=== PATIENT | female | born 1995 | race Caucasian/White ===

== ENCOUNTER 2019-06-24 09:53 | Emergency (ER) | payer MEDICAID ==
[~2019-06-24] VITALS: Ht 160 cm; Wt 39.0 kg
[~2019-06-24 09:53] MED LIST: CEPH250S PO; NAPR-996 PO; ONDA4TAB12 PO; PHEN20SP2 PO
[2019-06-24 09:55] VITALS: BP 118/91
[2019-06-24] MEDS ORDERED: CLOT15CR73 TP (10:50)
== END 2019-06-24 11:00 | disposition home or self-care (01) ==
LOC: ER 09:53
DX: N64.52 Nipple discharge (principal); B37.89 Other sites of candidiasis; J45.909 Unspecified asthma, uncomplicated; F17.200 Nicotine dependence, unspecified, uncomplicated; Z98.890 Other specified postprocedural states; Z88.6 Allergy status to analgesic agent; Z79.2 Long term (current) use of antibiotics; Z79.899 Other long term (current) drug therapy
CPT/HCPCS: 99283

== ENCOUNTER 2021-04-06 09:25 | Emergency (ER) | payer MEDICAID ==
[~2021-04-06] VITALS: Ht 160 cm; Wt 42.7 kg
[2021-04-06 09:35] VITALS: BP 144/75
== END 2021-04-06 12:04 | disposition home or self-care (01) ==
LOC: ER 09:26
DX: M54.59 Other low back pain (principal); J45.909 Unspecified asthma, uncomplicated; Z88.6 Allergy status to analgesic agent; Z79.899 Other long term (current) drug therapy
CPT/HCPCS: 99281

== ENCOUNTER 2021-07-01 14:23 | Emergency (ER) | payer MEDICAID ==
[~2021-07-01] VITALS: Ht 160 cm; Wt 42.3 kg
[2021-07-01 15:09] VITALS: BP 131/77
== END 2021-07-01 15:29 | disposition home or self-care (01) ==
LOC: ER 14:24
DX: F41.9 Anxiety disorder, unspecified (principal); J45.909 Unspecified asthma, uncomplicated; Z88.6 Allergy status to analgesic agent; Z79.899 Other long term (current) drug therapy
CPT/HCPCS: 99281; 99282

== ENCOUNTER 2021-07-10 15:32 | Emergency (ER) | payer MEDICAID ==
[~2021-07-10] VITALS: Ht 160 cm; Wt 42.0 kg
[2021-07-10] MEDS ORDERED: BACL5TAB PO (17:26)
[2021-07-10 17:44] VITALS: BP 126/74
== END 2021-07-10 17:46 | disposition home or self-care (01) ==
LOC: ER 15:33
DX: M54.59 Other low back pain (principal); J45.909 Unspecified asthma, uncomplicated; Z88.6 Allergy status to analgesic agent; Z79.899 Other long term (current) drug therapy
CPT/HCPCS: 99282

== ENCOUNTER 2022-10-02 15:59 | Emergency (ER) | payer MEDICAID, OTHER ==
[~2022-10-02] VITALS: Ht 157.5 cm; Wt 41.6 kg
[~2022-10-02 15:59] MED LIST changes: +BACL5TAB PO
[2022-10-02 16:04] VITALS: BP 110/74; PULSE 85; TEMP 97.8; O2SAT 99
[2022-10-02] MEDS ORDERED: ketorolac tromethamine 15mg/ml inj. IM ONE (17:20)
[2022-10-02] MEDS ORDERED: diazepam inj 5 MG/ML inj. IM ONE (17:20)
[2022-10-02] MEDS ORDERED: CYCL-1 PO (17:28)
[2022-10-02] MEDS ORDERED: PRED20TA PO (17:28)
[2022-10-02] MEDS ORDERED: ketorolac trometh. 30mg/ml inj. IM ONE (17:30)
[2022-10-02 17:39] VITALS: RESP 17
== END 2022-10-02 17:48 | disposition home or self-care (01) ==
LOC: ER 16:02
DX: S39.012A Strain of muscle, fascia and tendon of lower back, initial encounter (principal); S29.012A Strain of muscle and tendon of back wall of thorax, initial encounter; J45.909 Unspecified asthma, uncomplicated; Z88.6 Allergy status to analgesic agent; Z79.2 Long term (current) use of antibiotics; Z79.1 Long term (current) use of non-steroidal anti-inflammatories (NSAID); Z79.899 Other long term (current) drug therapy; X50.9XXA Other and unspecified overexertion or strenuous movements or postures, initial encounter; Y93.89 Activity, other specified; Y92.89 Other specified places as the place of occurrence of the external cause; Y99.8 Other external cause status
CPT/HCPCS: 96372; 99284; J1885; J3360